=== PATIENT | female | born 1995 | race Caucasian/White ===

== ENCOUNTER 2022-06-07 19:22 | Emergency (ER) | payer MEDICAID, OTHER ==
--- NOTE | 2022-06-07 20:47 | NUR ---
CALLED TO TRIAGE, NOT IN WAITING ROOM.
--- NOTE | 2022-06-07 20:53 | NUR ---
CALLED ONCE AGAIN FOR TRIAGE, STILL NO ANSWER.
== END 2022-06-07 20:54 | disposition left against medical advice (07) ==
LOC: ER 19:25
DX: Z53.21 Procedure and treatment not carried out due to patient leaving prior to being seen by health care provider (principal)